=== PATIENT | female | born 1970 | race American Indian/Alaskan Native ===

== ENCOUNTER 2017-01-15 07:18 | Outpatient (CLI) | payer OTHER ==
[2017-01-15] MEDS: PROVENTIL IH ONE (08:54)
== END 2017-01-15 07:19 | disposition home or self-care (01) ==
LOC: PF 07:18
PROVIDERS: ATTEND Internal Medicine
DX: J44.9 Chronic obstructive pulmonary disease, unspecified (principal)
CPT/HCPCS: 94060; 94640; 94729

== ENCOUNTER 2021-11-12 11:37 | Emergency (ER) | payer MEDICARE, MEDICAID ==
--- NOTE | 2021-11-12 13:17 | Emergency Department Report ---
<ALEJANDRA SOL - Last Filed: 11/12/21 15:03> ED Shortness of Breath HPI - General Chief Complaint: Dyspnea/Respdistress Stated Complaint: Time Seen by Provider: 11/12/21 12:03 Source: patient, EMS Mode of arrival: Stretcher Limitations: Physical Limitation - History of Present Illness Initial Comments: 51 yo Morbidly Obese F with h/o CHF who present with dyspnea for the last 1-2 weeks associated with confusion that is been going on for the last 1-2 weeks. Pt was sent in from [facility] for evaluation. No fever or chills reported but patient says she was recently admitted and discharged from [facility] when she was diagnosed with Covid 19 about a week ago. No other modifying or associated factors reported. MD Complaint: shortness of breath - Related Data Allergies Allergy/AdvReac Type Severity Reaction Status Date / Time No Known Allergies Allergy Verified 11/12/21 11:42 ED Review of Systems Comment: All other systems reviewed and negative Constitutional: no symptoms reported ENT: congestion Respiratory: orthopnea, shortness of breath, SOB with exertion, SOB at rest Cardiovascular: denies: chest pain, palpitations ED Past Medical Hx - Past Medical History Hx Hypertension: Yes Hx Congestive Heart Failure: Yes Hx Diabetes: Yes - Surgical History Past Surgical History?: No - Social History Smoking Status: Former Smoker ED Physical Exam - General Limitations: Physical Limitation General appearance: alert, in distress (due to dyspnea ), obese - Head Head exam: Present: normal inspection - Eye Eye exam: Present: normal appearance Pupils: Present: normal accommodation - ENT ENT exam: Present: normal exam, normal orophraynx, mucous membranes moist - Neck Neck exam: Present: normal inspection, full ROM. Absent: tenderness - Respiratory Respiratory exam: Present: normal lung sounds bilaterally. Absent: respiratory distress, accessory muscle use - Cardiovascular Cardiovascular Exam: Present: regular rate, normal rhythm, normal heart sounds - GI/Abdominal GI/Abdominal exam: Present: soft, normal bowel sounds. Absent: distended, tenderness - Extremities Exam Extremities exam: Present: normal inspection, normal capillary refill, pedal edema (+1 bilateral lower leg edema). Absent: tenderness - Back Exam Back exam: Absent: tenderness - Neurological Exam Neurological exam: Present: alert, altered - Psychiatric Psychiatric exam: Present: normal affect - Skin Skin exam: Present: warm, normal color ED Course - Reevaluation(s) Reevaluation #1: 11/12/21 15:[address] Cespedes while waiting for patient CT chest and abd/pel -- and other labs-- please consult nephrology and ICU for further evaluation and treatment. 11/12/21 15:04 ED Medical Decision Making - Lab Data Result diagrams: 11/12/21 13:39 11/12/21 13:39 - Medical Decision Making Here with shortness of breath--among differential diagnosis could be but not limited to acute exacerbation of COPD, myocardiac infarction, pulmonary embolism, acute exacerbation of asthma, pneumothorax, pneumonia or Viral or Bacterial Upper/Lower respiratory tract infection or other systemic infection.--To rule out the above will go ahead and order EKG, cardiac enzyme including troponin, BNP, CKMB, chest x-ray, CBC, CMP, UA and or D-dimer. In the meantime we will go ahead and treat with DuoNeb, 125 mg of Solu-Medrol, magnesium sulfate 2 g IV, and will make a case for antibiotics Levaquin considering likely cause to be acute COPD exacerbation and continue to monitor the patient. electrical/instrument technician told me that she was going to need help in getting this patient on the table. Labs reviewed noted with severely low Na+ 123, started ivf ns 1L bolus x1-- with elevated LFTs with t-bili -- will go ahead and order ammonia level to rule out hepatic encephalopathy and CT abd/pel to rule out any biliary tree obstruction-- Also noted with elevated K+ 5.6 with elevated BUN/Cr consistent with acute renal failure-- will continue the aggressive ivf hydration-- This patient is likely septic considering the extent of the metabolic derangements. Critical Care Time: Yes (120) Critical care time in (mins) excluding proc time.: 120 Critical care attestation.: Brought in by EMS with respiratory distress and noted with severe hyponatremia, severe and critical hypoglycemia and due to high probability of clinically significant, life threatening deterioration, this patient required my highest level of preparedness to intervene emergently and I personally spent this critical care time directly and personally managing this patient. This critical care time included obtaining a history; examining this patient; pulse oximetry ; ordering and review of studies ; arranging urgent treatment with development of a management plan ; evaluation of patient's response to treatment ; frequent reassessment ; and, discussion with other providers. This critical care time was performed to assess and manage the high probability of imminent, life- threatening deterioration that could result in multiple organ damage if not done in a timely fashion. ED Disposition Clinical Impression: Acute hyponatremia, Acute hyperkalemia, Hypoglycemia, Transaminitis Dyspnea Qualifiers: Dyspnea type: unspecified Qualified Code(s): R06.00 - Dyspnea, unspecified Acute renal failure (ARF) Qualifiers: Acute renal failure type: unspecified Qualified Code(s): N17.9 - Acute kidney failure, unspecified Disposition: ADMITTED INPATIENT Is pt being admited?: No Does the pt Need Aspirin: No Condition: Stable <JONATHAN CESPEDES - Last Filed: 11/12/21 23:19> ED Review of Systems ROS: Stated complaint: Other details as noted in HPI ED Course Vital Signs 11/12/21 11/12/21 11/12/21 11:40 11:58 13:17 Temperature 97.8 F Pulse Rate 130 H 108 H 109 H Respiratory 18 16 16 Rate Blood Pressure 134/109 Blood Pressure 162/88 134/109 [Left] O2 Sat by Pulse 94 93 Oximetry 11/12/21 11/12/21 16:42 18:36 Temperature Pulse Rate 60 66 Respiratory 21 16 Rate Blood Pressure Blood Pressure 114/52 122/85 [Left] O2 Sat by Pulse 16 L 98 Oximetry ED Medical Decision Making - Lab Data Result diagrams: 11/12/21 13:39 11/12/21 13:39 - Medical Decision Making Patient was to large to fit into CT scan. Right upper quadrant ultrasound ordered. Dr. Ronal karimi and had planned to admit patient pending ultrasound results. Critical care attestation.: If time is entered above; I have spent that time in minutes in the direct care of this critically ill patient, excluding procedure time. ED Disposition Is pt being admited?: Yes
[2021-11-12] MEDS ORDERED: SODIUM BICARB 8.4% 50 MEQ/50 ML SYRINGE IV ONE (13:52)
[2021-11-12] MEDS ORDERED: EPINEPHrine 1 MG/10 ML SYRINGE ONE (13:52)
[2021-11-12 13:58] LABS: INR 3.97 (0.87-1.13)
[2021-11-12 13:59] LABS: Partial Thromboplastin Time 47.9 Sec. (24.2-36.6)
[2021-11-12 14:11] LABS: Mean Corpuscular HGB Conc 30 % (30-34); Mean Corpuscular Volume 99 fl (79-97); Red Blood Count 5.65 M/mm3 (3.65-5.03)
[2021-11-12 14:12] LABS: Hemoglobin 17.1 gm/dl (10.1-14.3); Platelet Count 79 K/mm3 (140-440)
[2021-11-12 14:13] LABS: Hematocrit 56.2 % (30.3-42.9)
[2021-11-12 14:22] LABS: Albumin 2.8 g/dL (3.9-5); Calcium 9.9 mg/dL (8.4-10.2)
[2021-11-12] MEDS ORDERED: DEXTROSE 50% IN WATER (25GM) 50 ML SYRINGE IV ONE ×2 (14:35→18:43)
[2021-11-12] MEDS ORDERED: CEFEPIME/NS 2 GM/100 ML 2 GM/100 ML BAG IV ONE (14:40)
[2021-11-12] MEDS ORDERED: SODIUM CHLORIDE 0.9% 1000 ML 1,000 ML IV ONE ×2 (14:41→18:50)
[2021-11-12 15:03] LABS: Chol/HDL Ratio 4.7 %
[2021-11-12 15:04] LABS: Total Cells Counted 100
[2021-11-12 15:05] LABS: Anisocytosis 3+; Large Platelets Few; Platelet Estimate Consistent w Auto; Spherocytes Few; Target Cells Few
[2021-11-12] MEDS ORDERED: DEXTROSE 50% IN WATER (25GM) 50 ML VIAL IV ONE (18:43)
--- NOTE | 2021-11-12 18:48 | XRay Report ---
CHEST 1 VIEW INDICATION: sob. COMPARISON: None FINDINGS: SUPPORT DEVICES: None. HEART: Moderate cardiomegaly. LUNGS/PLEURA: Mild interstitial edema. No appreciable effusion. ADDITIONAL FINDINGS: None. IMPRESSION: 1. Moderate cardiomegaly with mild interstitial edema. Signer Name: Zheng Miranda MD Signed: 11/12/2021 6:43 PM Workstation Name: [id number]
--- NOTE | 2021-11-12 19:53 | Ultrasound Report ---
ULTRASOUND ABDOMEN, LIMITED (RIGHT UPPER QUADRANT) INDICATION / CLINICAL INFORMATION: Elevated LFTs. COMPARISON: None available. FINDINGS: PANCREAS: Obscured by bowel gas. LIVER: No significant abnormality. Normal hepatopedal blood flow in the main portal vein. GALLBLADDER: Distended but otherwise unremarkable BILE DUCTS: No significant abnormality. Common bile duct measures 5 mm. FREE FLUID: None. ADDITIONAL FINDINGS: None. IMPRESSION: 1. No significant sonographic abnormality of the right upper quadrant. Signer Name: Neno Hampton MD Signed: 11/12/2021 7:49 PM Workstation Name: [id number]
[2021-11-12] MEDS ORDERED: ACETAMINOPHEN 325 MG TAB PO PRN (22:01)
[2021-11-12] MEDS ORDERED: MAGNESIUM HYDROXIDE (MOM) ORAL LIQD UDC PO PRN (22:01)
[2021-11-12] MEDS ORDERED: MORPHINE 4 MG/1 ML INJ IV PRN (22:01)
[2021-11-12] MEDS ORDERED: ONDANSETRON 4 MG/2 ML INJ IV PRN (22:01)
[2021-11-12] MEDS ORDERED: MORPHINE 2 MG/1 ML INJ IV PRN (22:01)
--- NOTE | 2021-11-12 22:14 | History and Physical Report ---
History of Present Illness Date of examination: 11/12/21 Date of admission: 11/12/2021 Chief complaint: Shortness of Breath History of present illness: 51-year-old -[place] female with known history of CHF, diabetes mellitus, hypertension and morbid obesity seen in the emergency room today with complaints of shortness of breath and confusion which has been ongoing for the past 1 to 2 weeks. Patient was sent to the ER from [facility] for further evaluation. She was just recently discharged from [facility] for COVID pneumonia about a week ago. Most of the history was obtained from the ER staff as patient is not a good historian at this time. Work-up in the emergency room today, lab reveals hemoglobin of 17.1 and hematocrit of 56.2, D-dimer of 840, sodium of 123, potassium 5.6, CO2 of 13, BUN of 53 and creatinine of 4.0. Glucose of 25, troponin 0.062, BNP 470 3 6, AST 147 ALT 101 alkaline phos 175. Chest x-ray shows cardiomegaly with moderate interstitial edema. Abdominal ultrasound was unremarkable. Patient has been started on empiric IV antibiotics and IV fluid in the emergency room. She was said to have been given an amp of D50 in the emergency room. Repeat Accu-Chek is being awaited. Past History Past Medical History: diabetes, heart failure, hypertension Past Surgical History: No surgical history Social history: smoking (Former Smoker), other (Resident of Nursing) Family history: no significant family history Medications and Allergies Allergies Allergy/AdvReac Type Severity Reaction Status Date / Time No Known Allergies Allergy Verified 11/12/21 11:42 Active Meds: Active Medications Acetaminophen (Acetaminophen 325 Mg Tab) 650 mg PO Q6H PRN PRN Reason: Pain MILD(1-3)/Fever >100.5/CARL Heparin Sodium (Porcine) (Heparin 5,000 Unit/1 Ml Vial) 5,000 unit SUB-Q Q8HR MERCEDES Dextrose/Sodium Chloride (D5ns) 1,000 mls @ 75 mls/hr IV DIRECT MERCEDES Cefepime HCl (Cefepime/Ns 2 Gm/100 Ml) 2 gm in 100 mls @ 200 mls/hr IV Q8H MERCEDES; Protocol Magnesium Hydroxide (Magnesium Hydroxide (Mom) Oral Liqd Udc) 30 ml PO Q4H PRN PRN Reason: Constipation Morphine Sulfate (Morphine 2 Mg/1 Ml Inj) 2 mg IV Q4H PRN PRN Reason: Pain, Moderate (4-6) Morphine Sulfate (Morphine 4 Mg/1 Ml Inj) 4 mg IV Q4H PRN PRN Reason: Pain , Severe (7-10) Ondansetron HCl (Ondansetron 4 Mg/2 Ml Inj) 4 mg IV Q8H PRN PRN Reason: Nausea And Vomiting Sodium Chloride (Sodium Chloride 0.9% 10 Ml Flush Syringe) 10 ml IV BID MERCEDES Sodium Chloride (Sodium Chloride 0.9% 10 Ml Flush Syringe) 10 ml IV PRN PRN PRN Reason: LINE FLUSH Review of Systems ROS unobtainable: due to mental status (Appears lethargic and not quite responsive.) Exam - Constitutional Vitals: Temp Pulse Resp BP Pulse Ox 97.8 F 66 16 122/85 98 11/12/21 13:17 11/12/21 18:36 11/12/21 18:36 11/12/21 18:36 11/12/21 18:36 General appearance: Present: mild distress, obese - EENT Eyes: Present: PERRL, EOM intact. Absent: scleral icterus ENT: no hearing intact, no clear oral mucosa, no dentition normal - Neck Neck: Absent: supple, normal ROM - Respiratory Respiratory effort: normal Respiratory: bilateral: diminished - Cardiovascular Rhythm: regular Heart Sounds: Present: S1 & S2. Absent: gallop, systolic murmur, diastolic murmur, rub, click - Extremities Extremities: no ischemia, pulses intact, pulses symmetrical, No edema, normal temperature, Full ROM Peripheral Pulses: within normal limits - Abdominal General gastrointestinal: Present: soft, non-tender, non-distended, normal bowel sounds. Absent: mass - Integumentary Integumentary: Present: clear, warm, dry, normal turgor. Absent: rash - Musculoskeletal Musculoskeletal: strength equal bilaterally - Psychiatric Psychiatric: appropriate mood/affect, intact judgment & insight, memory intact, cooperative - Neurologic Neurologic: CNII-XII intact, no focal deficits, moves all extremities HEART Score - HEART Score Troponin: Troponin T 0.062 ng/mL (0.00-0.029) H 11/12/21 13:39 Results - Labs CBC & Chem 7: 11/12/21 13:39 11/12/21 13:39 Labs: Abnormal lab results 11/12/21 11/12/21 11/12/21 Range/Units 13:39 13:39 13:39 WBC 11.5 H (4.5-11.0) K/mm3 RBC 5.65 H (3.65-5.03) M/mm3 Hgb 17.1 H (10.1-14.3) gm/dl Hct 56.2 H* (30.3-42.9) % MCV 99 H (79-97) fl RDW 29.0 H (13.2-15.2) % Plt Count 79 L (140-440) K/mm3 Seg Neuts % (Manual) 81.0 H (40.0-70.0) % Lymphocytes % (Manual) 11.0 L (13.4-35.0) % Seg Neutrophils # Man 9.3 H (1.8-7.7) K/mm3 PT 45.2 H (12.2-14.9) Sec. INR 3.97 H (0.87-1.13) APTT 47.9 H (24.2-36.6) Sec. D-Dimer 840.63 H (0-234) ng/mlDDU Sodium 123 L (137-145) mmol/L Potassium 5.6 H (3.6-5.0) mmol/L Chloride 73.4 L (98-107) mmol/L Carbon Dioxide 13 L (22-30) mmol/L BUN 83 H (7-17) mg/dL Creatinine 4.0 H (0.6-1.2) mg/dL Glucose 25 L* (65-100) mg/dL Lactic Acid (0.7-2.0) mmol/L Total Bilirubin 5.20 H (0.1-1.2) mg/dL AST 147 H (5-40) units/L ALT 101 H (7-56) units/L Alkaline Phosphatase 175 H (35-129) units/L Troponin T (0.00-0.029) ng/mL NT-Pro-B Natriuret Pep (0-900) pg/mL Total Protein 6.1 L (6.3-8.2) g/dL Albumin 2.8 L (3.9-5) g/dL Triglycerides (2-149) mg/dL Cholesterol (50-199) mg/dL LDL Cholesterol Direct (50-130) mg/dL HDL Cholesterol (40-59) mg/dL SARS-CoV-2 (PCR) (Negative) 11/12/21 11/12/21 11/12/21 Range/Units 13:39 13:39 14:50 WBC (4.5-11.0) K/mm3 RBC (3.65-5.03) M/mm3 Hgb (10.1-14.3) gm/dl Hct (30.3-42.9) % MCV (79-97) fl RDW (13.2-15.2) % Plt Count (140-440) K/mm3 Seg Neuts % (Manual) (40.0-70.0) % Lymphocytes % (Manual) (13.4-35.0) % Seg Neutrophils # Man (1.8-7.7) K/mm3 PT (12.2-14.9) Sec. INR (0.87-1.13) APTT (24.2-36.6) Sec. D-Dimer (0-234) ng/mlDDU Sodium (137-145) mmol/L Potassium (3.6-5.0) mmol/L Chloride (98-107) mmol/L Carbon Dioxide (22-30) mmol/L BUN (7-17) mg/dL Creatinine (0.6-1.2) mg/dL Glucose (65-100) mg/dL Lactic Acid 15.10 H* (0.7-2.0) mmol/L Total Bilirubin (0.1-1.2) mg/dL AST (5-40) units/L ALT (7-56) units/L Alkaline Phosphatase (35-129) units/L Troponin T 0.062 H (0.00-0.029) ng/mL NT-Pro-B Natriuret Pep (0-900) pg/mL Total Protein (6.3-8.2) g/dL Albumin (3.9-5) g/dL Triglycerides 178 H (2-149) mg/dL Cholesterol 47 L (50-199) mg/dL LDL Cholesterol Direct 31 L (50-130) mg/dL HDL Cholesterol 10 L (40-59) mg/dL SARS-CoV-2 (PCR) Positive A (Negative) 11/12/21 11/12/21 11/12/21 Range/Units 16:15 19:04 19:04 WBC (4.5-11.0) K/mm3 RBC (3.65-5.03) M/mm3 Hgb (10.1-14.3) gm/dl Hct (30.3-42.9) % MCV (79-97) fl RDW (13.2-15.2) % Plt Count (140-440) K/mm3 Seg Neuts % (Manual) (40.0-70.0) % Lymphocytes % (Manual) (13.4-35.0) % Seg Neutrophils # Man (1.8-7.7) K/mm3 PT (12.2-14.9) Sec. INR (0.87-1.13) APTT (24.2-36.6) Sec. D-Dimer (0-234) ng/mlDDU Sodium (137-145) mmol/L Potassium (3.6-5.0) mmol/L Chloride (98-107) mmol/L Carbon Dioxide (22-30) mmol/L BUN (7-17) mg/dL Creatinine (0.6-1.2) mg/dL Glucose (65-100) mg/dL Lactic Acid 14.80 H* 15.50 H* (0.7-2.0) mmol/L Total Bilirubin (0.1-1.2) mg/dL AST (5-40) units/L ALT (7-56) units/L Alkaline Phosphatase (35-129) units/L Troponin T (0.00-0.029) ng/mL NT-Pro-B Natriuret Pep 49091 H (0-900) pg/mL Total Protein (6.3-8.2) g/dL Albumin (3.9-5) g/dL Triglycerides (2-149) mg/dL Cholesterol (50-199) mg/dL LDL Cholesterol Direct (50-130) mg/dL HDL Cholesterol (40-59) mg/dL SARS-CoV-2 (PCR) (Negative) Assessment and Plan Assessment: 1.COVID Pneumonia 2.Elevated Liver Enzymes 3.Hypoglycemia 4.H/O D/Mellitus 5.Hypoxia- secondary Pneumonia 6. Severe sepsis-possibly secondary to underlying pneumonia. Plan: 1.Admitted and placed on empiric IV antibiotics 2.We will start on IV steroids 3.Monitor accuchecks 4.Resume routine home medications 5.ID consult for evaluation 6. GI consult for elevated LFT. DVT Prophylaxis: SQ Heparin Code Status: Full Code NB: I was in the process of putting in orders and note on this patient when a CODE BLUE was called.
[2021-11-12] MEDS ORDERED: DEXTROSE 50% IN WATER (25GM) 50 ML SYRINGE IV PRN (22:23)
[2021-11-12] MEDS ORDERED: SODIUM CHLORIDE 0.9% 1000 ML 1,000 ML ONE (22:23)
[2021-11-12] MEDS ORDERED: GLUCAGON (HUMAN RECOMBINANT) 1 MG/ML INJ ONE (22:41)
--- NOTE | 2021-11-12 22:58 | Event Note ---
Date: 11/12/21 was called for a code , intubated ., bicarb calcium and epi was given ,d 50 gven glucagon, no pulse pronounced at 1051
[2021-11-12] MEDS ORDERED: D5W/0.9% NACL 1,000 ML IV SCH (23:00)
[2021-11-12] MEDS ORDERED: CEFEPIME/NS 2 GM/100 ML 2 GM/100 ML BAG IV SCH (23:00)
[2021-11-12 23:17] VITALS: BP 69/44
--- NOTE | 2021-11-12 23:31 | Event Note ---
Date: 11/12/21 SUKUMAR CHI called on 51-year-old -[place] female who had just been admitted few minutes ago. Was in the room with patient at bedside actively being coded by the ER physician. Blood glucose was found to be 24 initially and subsequently 10. She was given IM glucagon and IV D50. All resuscitative measures according to ACLS protocol proved futile. Patient was pronounced at 10:51 PM on November 12, 2021. Family member who is also a staff of this hospital was promptly notified.
[2021-11-13] MEDS ORDERED: CEFEPIME/NS 2 GM/100 ML 2 GM/100 ML BAG IV SCH (05:00)
[2021-11-13] MEDS ORDERED: HEPARIN 5,000 UNIT/1 ML VIAL SUB-Q SCH (06:00)
[2021-11-13] MEDS ORDERED: INSULIN LISPRO 100 UNIT/ML SUB-Q SCH (07:30)
--- NOTE | 2021-11-13 10:19 | Electrocardiograph Report ---
[facility] Test Date: 2021-11-12 Test Time: 11:59:19 Pat Name: ARMAAN DODGE Department: Room: A266 Gender: F Sulphate Tester: KAYLIE : 1970 Requested By: ALEJANDRA SOL Order Number: [id number] Reading MD: Ligia Day Measurements Intervals [place] Rate: 109 P: 65 TX: 183 QRS: 128 QRSD: 104 T: -4 QT: 342 QTc: 462 Interpretive Statements Sinus tachycardia Biatrial enlargement Low voltage, precordial leads Right axis deviation Right ventricular hypertrophy No previous ECG available for comparison Electronically Signed On 11-13-2021 10:19:12 EDT by Ligia Day
== END 2021-11-13 04:35 | disposition admitted as inpatient to this hospital (09) ==
LOC: ED 11:37 → IMCU 22:01 → UNDOADMIN 22:01 → ED 11-13 04:35
DX: U07.1 COVID-19 (principal); N17.9 Acute kidney failure, unspecified; E16.2 Hypoglycemia, unspecified; E87.1 Hypo-osmolality and hyponatremia; E87.5 Hyperkalemia; I11.0 Hypertensive heart disease with heart failure; I50.9 Heart failure, unspecified; E11.9 Type 2 diabetes mellitus without complications; Z87.891 Personal history of nicotine dependence; Z79.899 Other long term (current) drug therapy
CPT/HCPCS: 31500; 36415; 71045; 76705; 80053; 80061; 82140; 82962; 83880; 84484; 85007; 85025; 85379; 85610; 85730; 92950; 93005; 96361; 96365; 96375; 96376; 99291; 99292; J0171; J0692; J1610; J3490; J7030; J7042; U0003